=== PATIENT | male | born 1990 | race Caucasian/White ===

== ENCOUNTER → 2020-07-11 | Outpatient (CLI) | payer BC ==
[2016-06-03 19:21] VITALS: BP 130/80
[~2020-07-11] MED LIST: LISINOPRIL AND1 TAB PO; VIBRAMYCIN100 MG PO
== END ==
LOC: LAB 11:09
DX: R30.9 Painful micturition, unspecified (principal)

== ENCOUNTER → 2020-07-24 | Outpatient (CLI) | payer BC ==
[2016-06-03 19:21] VITALS: BP 130/80
== END ==
LOC: LAB 09:38
DX: R30.9 Painful micturition, unspecified (principal)

== ENCOUNTER → 2020-07-31 | Outpatient (CLI) | payer BC ==
[2016-06-03 19:21] VITALS: BP 130/80
[2020-07-31 12:41] LABS: HEMATOCRIT 46.5 % (42.0-52.0); HEMOGLOBIN 15.5 g/dL (13.5-18.0); MEAN CELL VOLUME 91 fl (78-100); MEAN CORPUSCULAR HEMOGLOBIN 31 pg (27-31); MEAN CORPUSCULAR HGB CONC 33 g/dL (33-37); MEAN PLATELET VOLUME 9.9 fl (7.4-10.4); PLATELET COUNT 212 K/mm3 (130-400); RED BLOOD COUNT 5.09 M/mm3 (4.20-5.60); RED CELL DISTRIBUTION WIDTH 13.2 % (11.5-14.5); WHITE BLOOD COUNT 7.8 K/mm3 (4.8-10.8)
[2020-07-31 12:51] LABS: ALBUMIN 4.7 g/dL (3.5-5.0); LYMPHOCYTE 26 % (20-51); MONOCYTE 13 % (3-10); NEUTROPHILS 59 % (42-75); POTASSIUM 3.6 mmol/L (3.5-5.1)
[2020-07-31 12:52] LABS: CALCIUM 9.9 mg/dL (8.3-10.5)
[2020-07-31 12:53] LABS: TOTAL PROTEIN 8.1 g/dL (6.4-8.3)
[2020-07-31 12:55] LABS: TOTAL BILIRUBIN 0.4 mg/dL (0.2-1.2)
[2020-07-31 13:01] LABS: URINE APPEARANCE CLEAR; URINE BILIRUBIN NEGATIVE (NEGATIVE); URINE BLOOD NEGATIVE (NEGATIVE); URINE COLOR YELLOW; URINE GLUCOSE NEGATIVE (NEGATIVE); URINE KETONE NEGATIVE (NEGATIVE); URINE LEUKOCYTE ESTERASE NEGATIVE (NEGATIVE); URINE NITRATE NEGATIVE (NEGATIVE); URINE PROTEIN(semi-quant) TRACE mg/dL (NEGATIVE); URINE UROBILINOGEN NORMAL (NORMAL)
== END ==
LOC: LAB 12:29
PROVIDERS: Family Medicine
DX: Z00.00 Encounter for general adult medical examination without abnormal findings (principal); R31.29 Other microscopic hematuria

== ENCOUNTER → 2020-08-22 | Outpatient (CLI) | payer BC ==
[2016-06-03 19:21] VITALS: BP 130/80
== END ==
LOC: RAD 16:11
DX: S52.92XA Unspecified fracture of left forearm, initial encounter for closed fracture (principal)

== ENCOUNTER → 2021-06-12 | Outpatient (CLI) | payer BC ==
[2021-06-12 16:17] LABS: BASO # 0.04 K/mm3 (0.02-0.10); EOS # 0.26 K/mm3 (0.04-0.40); EOS % 3.4 % (0.0-4.0); HEMATOCRIT 49.2 % (42.0-52.0); HEMOGLOBIN 16.4 g/dL (13.5-18.0); LYMPH# 2.26 K/mm3 (1.50-4.00); MEAN CELL VOLUME 93 fl (78-100); MEAN CORPUSCULAR HEMOGLOBIN 31 pg (27-31); MEAN CORPUSCULAR HGB CONC 33 g/dL (33-37); MEAN PLATELET VOLUME 9.9 fl (7.4-10.4); MONO # 0.85 K/mm3 (0.20-0.80); NEU # 4.33 K/mm3 (1.40-6.50); PLATELET COUNT 178 K/mm3 (130-400); RED BLOOD COUNT 5.28 M/mm3 (4.20-5.60); RED CELL DISTRIBUTION WIDTH 12.5 % (11.5-14.5); WHITE BLOOD COUNT 7.8 K/mm3 (4.8-10.8)
[2021-06-12 16:27] LABS: ALBUMIN 4.5 g/dL (3.5-5.0); POTASSIUM 3.9 mmol/L (3.5-5.1)
[2021-06-12 16:30] LABS: TOTAL PROTEIN 7.9 g/dL (6.4-8.3)
[2021-06-12 16:31] LABS: TOTAL BILIRUBIN 0.7 mg/dL (0.2-1.2)
== END ==
LOC: LAB 16:03
PROVIDERS: Family Medicine
DX: Z00.00 Encounter for general adult medical examination without abnormal findings (principal); E78.5 Hyperlipidemia, unspecified

== ENCOUNTER 2021-08-08 11:06 | Emergency (ER) | payer BC, OTHER ==
[2021-08-08 12:05] LABS: BASO # 0.04 K/mm3 (0.02-0.10); EOS # 0.19 K/mm3 (0.04-0.40); EOS % 2.4 % (0.0-4.0); HEMATOCRIT 48.3 % (42.0-52.0); LYMPH# 1.67 K/mm3 (1.50-4.00); MEAN CELL VOLUME 93 fl (78-100); MEAN CORPUSCULAR HEMOGLOBIN 31 pg (27-31); MEAN CORPUSCULAR HGB CONC 33 g/dL (33-37); MEAN PLATELET VOLUME 10.9 fl (7.4-10.4); MONO # 0.74 K/mm3 (0.20-0.80); NEU # 5.36 K/mm3 (1.40-6.50); PLATELET COUNT 129 K/mm3 (130-400); RED CELL DISTRIBUTION WIDTH 12.4 % (11.5-14.5)
[2021-08-08 12:14] LABS: ALBUMIN 4.6 g/dL (3.5-5.0); POTASSIUM 4.4 mmol/L (3.5-5.1); SODIUM 140 mmol/L (136-145)
[2021-08-08 12:15] LABS: CALCIUM 9.9 mg/dL (8.3-10.5)
[2021-08-08 12:16] LABS: GLUCOSE 97 mg/dL (75-110); TOTAL PROTEIN 7.9 g/dL (6.4-8.3)
[2021-08-08 12:17] LABS: CARBON DIOXIDE 24 mmol/L (22-29)
[2021-08-08 12:18] LABS: TOTAL BILIRUBIN 0.8 mg/dL (0.2-1.2)
[2021-08-08 12:22] LABS: AST-SGOT 34 U/L (5-34)
[2021-08-08 12:23] LABS: ALT/SGPT 68 U/L (0-55)
[2021-08-08 12:30] LABS: D-DIMER 0.12 mg/L FEU (0.15-0.50)
[2021-08-08 12:31] LABS: TROPONIN-I < 0.030 ng/mL (<0.030)
[2021-08-08 13:00] LABS: URINE APPEARANCE CLEAR; URINE COLOR YELLOW
[2021-08-08 13:01] LABS: URINE BILIRUBIN NEGATIVE (NEGATIVE); URINE BLOOD NEGATIVE (NEGATIVE); URINE GLUCOSE NEGATIVE (NEGATIVE); URINE KETONE NEGATIVE (NEGATIVE); URINE LEUKOCYTE ESTERASE NEGATIVE (NEGATIVE); URINE NITRATE NEGATIVE (NEGATIVE); URINE PROTEIN(semi-quant) 1+ (NEGATIVE); URINE UROBILINOGEN NORMAL (NORMAL); URINE WBC 0-1 /hpf (0-3)
[2021-08-08] MEDS ORDERED: HYDROCHLOROTHIA1 T14 PO (13:48)
[2021-08-08 14:18] VITALS: BP 139/92
== END 2021-08-08 14:02 | disposition home or self-care (01) ==
LOC: ED 11:06
PROVIDERS: Physician Assistant
DX: R07.89 Other chest pain (principal); I10 Essential (primary) hypertension

== ENCOUNTER → 2023-06-05 | Outpatient (CLI) | payer OTHER ==
[~2023-06-05] MED LIST changes: +HYDROCHLOROTHIA1 T14 PO
[2023-06-05 09:52] LABS: BASO # 0.02 K/mm3 (0.02-0.10); EOS # 0.28 K/mm3 (0.04-0.40); HEMATOCRIT 45.3 % (42.0-52.0); HEMOGLOBIN 15.1 g/dL (13.5-18.0); LYMPH# 1.49 K/mm3 (1.50-4.00); MEAN CELL VOLUME 93 fl (78-100); MEAN CORPUSCULAR HEMOGLOBIN 31 pg (27-31); MEAN CORPUSCULAR HGB CONC 33 g/dL (33-37); MEAN PLATELET VOLUME 9.9 fl (7.4-10.4); MONO # 0.64 K/mm3 (0.20-0.80); NEU # 3.21 K/mm3 (1.40-6.50); PLATELET COUNT 200 K/mm3 (130-400); RED BLOOD COUNT 4.85 M/mm3 (4.20-5.60); RED CELL DISTRIBUTION WIDTH 12.3 % (11.5-14.5); WHITE BLOOD COUNT 5.7 K/mm3 (4.8-10.8)
[2023-06-05 10:15] LABS: ALBUMIN 4.6 g/dL (3.5-5.0)
[2023-06-05 10:16] LABS: CALCIUM 9.7 mg/dL (8.3-10.5)
[2023-06-05 10:17] LABS: TOTAL PROTEIN 7.8 g/dL (6.4-8.3)
[2023-06-05 10:19] LABS: TOTAL BILIRUBIN 0.7 mg/dL (0.2-1.2)
== END ==
LOC: LAB 09:39
PROVIDERS: Nurse Practitioner
DX: Z00.00 Encounter for general adult medical examination without abnormal findings (principal); E78.5 Hyperlipidemia, unspecified; E66.3 Overweight; I10 Essential (primary) hypertension; R53.83 Other fatigue

== ENCOUNTER → 2023-08-13 | Outpatient (CLI) | payer OTHER | LOC: RAD 10:34 | DX: M51.37 Other intervertebral disc degeneration, lumbosacral region (principal); E55.9 Vitamin D deficiency, unspecified ==

== ENCOUNTER → 2024-01-12 | Outpatient (CLI) | payer OTHER | LOC: LAB 11:38 | DX: E29.1 Testicular hypofunction (principal) ==

== ENCOUNTER → 2024-07-13 | Outpatient (CLI) | payer OTHER ==
[2024-07-13 10:31] LABS: BASO # 0.03 K/mm3 (0.02-0.10); EOS # 0.32 K/mm3 (0.04-0.40); EOS % 5.6 % (0.0-4.0); HEMATOCRIT 45.3 % (42.0-52.0); HEMOGLOBIN 15.5 g/dL (13.5-18.0); LYMPH# 1.22 K/mm3 (1.50-4.00); MEAN CELL VOLUME 91 fl (78-100); MEAN CORPUSCULAR HEMOGLOBIN 31 pg (27-31); MEAN CORPUSCULAR HGB CONC 34 g/dL (33-37); MEAN PLATELET VOLUME 9.5 fl (7.4-10.4); MONO # 0.56 K/mm3 (0.20-0.80); NEU # 3.63 K/mm3 (1.40-6.50); PLATELET COUNT 198 K/mm3 (130-400); RED CELL DISTRIBUTION WIDTH 11.9 % (11.5-14.5); WHITE BLOOD COUNT 5.8 K/mm3 (4.8-10.8)
[2024-07-13 10:39] LABS: ALBUMIN 4.3 g/dL (3.5-5.0); CALCIUM 9.8 mg/dL (8.3-10.5)
[2024-07-13 10:41] LABS: TOTAL PROTEIN 7.1 g/dL (6.4-8.3)
[2024-07-13 10:43] LABS: TOTAL BILIRUBIN 0.8 mg/dL (0.2-1.2)
== END ==
LOC: LAB 10:17
PROVIDERS: Family Medicine
DX: I10 Essential (primary) hypertension (principal); R73.9 Hyperglycemia, unspecified; E29.1 Testicular hypofunction

== ENCOUNTER 2024-10-01 17:17 | Emergency (ER) | payer OTHER ==
[~2024-10-01] VITALS: Ht 177.8 cm; Wt 92.7 kg
[2024-10-01 18:16] LABS: HEMATOCRIT 40.6 % (42.0-52.0); HEMOGLOBIN 13.8 g/dL (13.5-18.0); MEAN CELL VOLUME 91 fl (78-100); MEAN CORPUSCULAR HEMOGLOBIN 31 pg (27-31); MEAN CORPUSCULAR HGB CONC 34 g/dL (33-37); MEAN PLATELET VOLUME 9.2 fl (7.4-10.4); PLATELET COUNT 424 K/mm3 (130-400); RED BLOOD COUNT 4.46 M/mm3 (4.20-5.60); RED CELL DISTRIBUTION WIDTH 13.2 % (11.5-14.5)
[2024-10-01 18:18] LABS: WHITE BLOOD COUNT 26.1 K/mm3 (4.8-10.8)
[2024-10-01 18:21] LABS: ALBUMIN 3.2 g/dL (3.5-5.0)
[2024-10-01 18:23] LABS: CALCIUM 8.9 mg/dL (8.3-10.5)
[2024-10-01 18:24] LABS: TOTAL PROTEIN 7.4 g/dL (6.4-8.3)
[2024-10-01 18:26] LABS: TOTAL BILIRUBIN 0.5 mg/dL (0.2-1.2)
[2024-10-01] MEDS ORDERED: Piperacillin/Tazobactam Sodium 4.5 GM in Water For Injection,Sterile 20 ML IV ONE (18:30)
[2024-10-01 18:40] LABS: BAND 7 % (0-10); LYMPHOCYTE 9 % (20-51); MONOCYTE 12 % (3-10); NEUTROPHILS 72 % (42-75)
[2024-10-01] MEDS ORDERED: Vancomycin 2 G in NS 500 ML IV ONE (18:45)
[2024-10-01] MEDS ORDERED: Iohexol 300 - 100 ML VIAL IV ONE (19:06)
[2024-10-01] MEDS ORDERED: NS 100 ML IV SCH (19:07)
[2024-10-01] MEDS ORDERED: Ondansetron 4 MG/2 ML VIAL IV ONE (19:45)
[2024-10-01] MEDS ORDERED: Morphine 4 MG/ML VIAL IV ONE (19:45)
[2024-10-01] MEDS ORDERED: NS 1,000 ML IV SCH (19:45)
[2024-10-01] MEDS ORDERED: HYDROmorphone 0.5 MG/0.5 ML SYRINGE IV PRN (21:15)
[2024-10-01 22:18] VITALS: BP 124/64
[2024-10-02] MEDS ORDERED: Piperacillin/Tazobactam Sodium 4.5 GM in NS 100 ML IV SCH (02:00)
[2024-10-02] MEDS ORDERED: Vancomycin 1 G in NS 250 ML IV ONE ×2 (02:00→08:00)
== END 2024-10-01 22:20 | disposition short-term general hospital (02) ==
LOC: ED 17:17
PROVIDERS: Family Medicine
DX: J85.2 Abscess of lung without pneumonia (principal); E87.1 Hypo-osmolality and hyponatremia; R74.8 Abnormal levels of other serum enzymes
CPT/HCPCS: J1171; J2270; J2405; J2543; J3370; J7030; J7040; J7120; Q9967

== ENCOUNTER → 2024-10-01 | Outpatient (CLI) | payer OTHER | LOC: RAD 17:04 | DX: R06.09 Other forms of dyspnea (principal) ==